=== PATIENT | female | born 1980 | race Caucasian/White ===

== ENCOUNTER 2016-05-27 16:59 | Emergency (ER) | payer OTHER ==
[2016-05-27] MEDS ORDERED: MORPHINE SULFATE 10 MG/ML SOL IV ONE (17:04)
[2016-05-27] MEDS ORDERED: MORPHINE SULFATE 10 MG/ML SOL ONE (17:05)
[2016-05-27 17:33] VITALS: RESP 16
[2016-05-27] MEDS ORDERED: KETOROLAC TROMETHAMINE 30 MG/ML SOL IV ONE (19:04)
[2016-05-27] MEDS ORDERED: KETOROLAC TROMETHAMINE 30 MG/ML SOL ONE (19:10)
[2016-05-27] MEDS ORDERED: SODIUM CHLORIDE 0.9% 1000ML 1,000 ML IV ONE (19:30)
[2016-05-27 19:37] LABS: ALBUMIN 3.6 gm/dl (3.4-5.0); BILIRUBIN,DIRECT 0.1 mg/dl (0.0-0.2)
[2016-05-27 21:08] VITALS: BP 111/74; PULSE 104; TEMP 100; O2SAT 100
[2016-05-27] MEDS ORDERED: SODIUM CHLORIDE 0.9% FLUSH 10 ML SOL IV PRN (22:07)
== END 2016-05-27 21:00 | disposition home or self-care (01) | DRG 392 ==
LOC: ED 16:59
DX: K52.9 Noninfective gastroenteritis and colitis, unspecified (principal); N83.12 Corpus luteum cyst of left ovary
CPT/HCPCS: 36415; 74177; 80076; 82150; 96374; 99284; J1885; J2270; Q9967